=== PATIENT | male | born 1980 | race Caucasian/White ===

== ENCOUNTER 2018-06-05 21:53 | Emergency (ER) | payer MEDICAID ==
[~2018-06-05] VITALS: Ht 172.7 cm; Wt 72.6 kg
[~2018-06-05 21:53] MED LIST: AZIT250 PO; Bactroban22 GM TOP; CRUTCH USE; DEXGUASY PO; HYDACE5 PO; OXYACE5T PO; PRED20 PO; TOBDEXOPSU OP
== END 2018-06-05 23:23 | disposition home or self-care (01) ==
LOC: ER 21:53
DX: S93.401A Sprain of unspecified ligament of right ankle, initial encounter (principal); F17.210 Nicotine dependence, cigarettes, uncomplicated; X50.9XXA Other and unspecified overexertion or strenuous movements or postures, initial encounter
CPT/HCPCS: 73610; 99283-25

== ENCOUNTER 2021-09-01 16:56 | Emergency (ER) | payer OTHER ==
[~2021-09-01] VITALS: Ht 172.7 cm; Wt 76.2 kg
[~2021-09-01 16:56] MED LIST changes: +Doxycycline Hy100 MG PO
[2021-09-01] MEDS ORDERED: PERM5TC TOP (17:14)
== END 2021-09-01 17:25 | disposition home or self-care (01) ==
LOC: ER 16:56
DX: B86 Scabies (principal); F17.210 Nicotine dependence, cigarettes, uncomplicated
CPT/HCPCS: 99282; A9270

== ENCOUNTER 2021-09-03 20:21 | Emergency (ER) | payer OTHER ==
[~2021-09-03] VITALS: Ht 172.7 cm; Wt 76.2 kg
[~2021-09-03 20:21] MED LIST changes: +PERM5TC TOP
== END 2021-09-03 22:53 | disposition home or self-care (01) ==
LOC: ER 20:21
DX: B86 Scabies (principal); F17.210 Nicotine dependence, cigarettes, uncomplicated
CPT/HCPCS: 99282

== ENCOUNTER 2024-01-29 17:10 | Inpatient (IN) | payer OTHER ==
[~2024-01-29] VITALS: Ht 172.7 cm; Wt 77.1 kg
[~2024-01-29 17:10] MED LIST changes: +CYCL10 PO; +IBUP800 PO; +Norco 5-325 Ta1 EACH PO; +Voltaren100 GM TOP
[2024-01-29 18:18] LABS: BASOPHILS ABSOLUTE AUTO 0.07 K/mm3 (0.00-0.23); BASOPHILS PERCENT AUTO 0 % (0-2); EOSINOPHILS ABSOLUTE AUTO 0.27 K/mm3 (0.00-0.68); EOSINOPHILS PERCENT AUTO 1 % (0-6); Hematocrit 38.7 % (37.0-53.0); Hemoglobin 12.9 g/dL (13.5-17.5); IMMATURE GRAN ABSOLUTE AUTO 0.15 K/mm3 (0.00-0.10); IMMATURE GRAN PERCENT AUTO 1 % (0-1); LYMPHOCYTES ABSOLUTE AUTO 2.48 K/mm3 (0.84-5.20); LYMPHOCYTES PERCENT AUTO 13 % (21-46); MONOCYTES ABSOLUTE AUTO 1.25 K/mm3 (0.16-1.47); MONOCYTES PERCENT AUTO 7 % (4-13); Mean Corpuscular HGB 29.3 pg (26.0-34.0); Mean Corpuscular HGB Conc 33.3 g/dL (31.5-36.5); Mean Corpuscular Volume 88 fL (80-100); NEUTROPHILS ABSOLUTE AUTO 14.42 K/mm3 (1.96-9.15); NEUTROPHILS PERCENT AUTO 77 % (41-73); Platelet Count 390 K/mm3 (150-400); RDW Coefficient Variation 12.2 % (11.7-14.2); RDW Standard Deviation 39.7 fL (35.1-46.3); White Blood Cell Count 18.64 K/mm3 (4.00-11.30)
[2024-01-29 18:40] LABS: Bun/Creatinine Ratio 13.3 (12.0-20.0); Calcium, Blood 9.2 mg/dL (8.5-10.1); Creatinine, Blood 0.9 mg/dL (0.60-1.20); Potassium, Blood 4.3 mmol/L (3.5-5.5)
[2024-01-29 19:00] LABS: Influenza A, PCR NEGATIVE (NEGATIVE); Influenza B, PCR NEGATIVE (NEGATIVE); Resp Syncytial Virus, PCR NEGATIVE (NEGATIVE); SARS-Cov-2 (COVID-19) PCR, MMC NEGATIVE (NEGATIVE)
[2024-01-29] MEDS ORDERED: MetroNIDAZOLE 500MG/NS 100 ml 100 ML IV ONE (19:00)
[2024-01-29] MEDS ORDERED: Azithromycin 250 MG Tab PO ONE (19:00)
[2024-01-29] MEDS ORDERED: CefTRIAXone Sodium 1,000 MG in NS 100 ML IV ONE (19:00)
[2024-01-29] MEDS ORDERED: NS 1,000 ML IV SCH ×3 (19:10→20:55)
[2024-01-29] MEDS ORDERED: Benzonatate 100 MG Cap PO ONE (19:25)
[2024-01-29] MEDS ORDERED: Ondansetron HCl 2 MG / ML 2ML Vial IV PRN (20:55)
[2024-01-29] MEDS ORDERED: Acetaminophen 325 MG TABLET PO PRN (20:55)
[2024-01-29] MEDS ORDERED: Piperacillin/Tazobactam Sod 3.375 GM in NS 100 ML IV SCH (21:00)
[2024-01-29 22:50] VITALS: BP 128/82
--- NOTE | 2024-01-30 03:02 | NUR ---
SHIFT SUMMARY 43 YR M ADMITTED ON 01/29/24. FULL CODE. NO ACUTE CHANGES THIS SHIFT. PT STAYED THE NIGHT IN THE ROOM WITH HIM. PT STATED HE WAS TOLD IN THE ED THAT HE MAY HAVE LUNG CANCER AND HE AND HIS ARE UPSET AND NOT WANTING TO BE APART RIGHT NOW. PT IS A&O X 4 AND INDEPENDANT IN THE ROOM. HE DID HAVE A PACK OF CIAGARETTES AND A MEDICAL SUPERVISOR ON HIM, BUT SURRENDERED THEM TO THIS NURSE TO BE LOCKED IN PT DRAWER UNTIL TIME OF DISCHARGE. PT C/O HACKING COUGH AND GIVEN GUAIFENESEN W/CODEINE WITH SLIGHT RELEIF. NO C/O CHEST PAIN OR SOB. BED IN LOW POSITION AND CALL LIGHT IN REACH.
[2024-01-30 04:20] VITALS: BP 85/59
[2024-01-30 04:21] VITALS: BP 89/58
[2024-01-30 06:06] LABS: BASOPHILS ABSOLUTE AUTO 0.06 K/mm3 (0.00-0.23); BASOPHILS PERCENT AUTO 0 % (0-2); EOSINOPHILS PERCENT AUTO 2 % (0-6); Hematocrit 36.1 % (37.0-53.0); Hemoglobin 12.1 g/dL (13.5-17.5); IMMATURE GRAN ABSOLUTE AUTO 0.13 K/mm3 (0.00-0.10); IMMATURE GRAN PERCENT AUTO 1 % (0-1); LYMPHOCYTES ABSOLUTE AUTO 1.92 K/mm3 (0.84-5.20); LYMPHOCYTES PERCENT AUTO 12 % (21-46); MONOCYTES ABSOLUTE AUTO 1.26 K/mm3 (0.16-1.47); MONOCYTES PERCENT AUTO 8 % (4-13); Mean Corpuscular HGB 29.7 pg (26.0-34.0); Mean Corpuscular HGB Conc 33.5 g/dL (31.5-36.5); Mean Corpuscular Volume 89 fL (80-100); Mean Platelet Volume 9.2 fL (9.1-12.4); NEUTROPHILS ABSOLUTE AUTO 12.26 K/mm3 (1.96-9.15); NEUTROPHILS PERCENT AUTO 77 % (41-73); Platelet Count 314 K/mm3 (150-400); RDW Coefficient Variation 12.3 % (11.7-14.2); RDW Standard Deviation 40.4 fL (35.1-46.3); Red Blood Cell Count 4.07 M/mm3 (4.30-5.90); White Blood Cell Count 15.93 K/mm3 (4.00-11.30)
[2024-01-30 06:24] LABS: U Amphetamine Screen DETECTED; U Barbituate Screen Not Detected; U Benzodiazapine Screen Not Detected; U Buprenorphine Screen Not Detected; U Cannabinoids Screen Not Detected; U Cocaine Screen Not Detected; U Methadone Screen Not Detected; U Methamphetamine Screen DETECTED; U Opiates Screen DETECTED; U Oxycodone Screen Not Detected; U Phencyclidine Screen Not Detected
[2024-01-30 06:48] LABS: Bun/Creatinine Ratio 10.3 (12.0-20.0); Calcium, Blood 8.6 mg/dL (8.5-10.1); Creatinine, Blood 0.97 mg/dL (0.60-1.20); Potassium, Blood 4.4 mmol/L (3.5-5.5)
[2024-01-30 08:01] VITALS: BP 108/67
[2024-01-30] MEDS ORDERED: Benzonatate 100 MG Cap PO SCH (12:00)
[2024-01-30 13:00] VITALS: BP 137/70
[2024-01-30] MEDS ORDERED: GuaiFENesin 600 MG TabCR PO SCH (13:00)
[2024-01-30] MEDS ORDERED: Enoxaparin 40 MG/0.4 ML SYR SC SCH (13:00)
[2024-01-30] MEDS ORDERED: Ipratropium/Albuterol SulF 2.5-0.5MG/3 ML Amp INH SCH ×2 (16:50)
--- NOTE | 2024-01-30 18:22 | NUR ---
SHIFT SUMMARY 43 YEAR OLD MALE ADMITTED FOR PRESISENT COUGH, SUSPECTED NECROTIZING PNEUMONIA, 7 MM LEFT UPPER LOBE NODULE, SUSPECTED MALIGNANCY, TEMPATURE 98.8 F, BLOOD PRESSURE 137/70 PULSE 101, O2 SATS 100% GIVEN ZOYSAN TO TREAT INFECTION. CONTINUEOUS NORMAL SALINE 100 ML HOUR. C/O COUGH, CARDIAC TACHYCARDIC BOUNDING PULSES, LUNG SOUNDS COARSE CRACKLES, BOWEL SOUNDS PRESENT, NO BM, PT ABLE AMBULATE WITH NO ASSISTANCE. REGULAR DIET. NO EDEMA NOTED.
--- NOTE | 2024-01-30 18:44 | NUR ---
[facility] TRENDING DOWNWARD. VITAL SIGNS ARE STABALIZING.
--- NOTE | 2024-01-30 18:58 | NUR ---
SHIFT SUMMARY PT RESTING COMFORTABLE HR, BP, O2 SAT WNL AND PULSES ARE STRONG.BIOPSY TOMORROW ON LEFT LOBE. PATIENT STILL HAS COUGH GIVEN GUAIFENSIN WITH CODEINE WHICH SEEMS EFFECTIVE IN REDUCING THE COUGH.
[2024-01-30 20:47] VITALS: BP 120/69
[2024-01-30] MEDS ORDERED: Lactobacil 2-S.Thermo-Bifido 1 1 Cap PO SCH (21:00)
[2024-01-31 04:02] VITALS: BP 126/79
--- NOTE | 2024-01-31 04:49 | NUR ---
SHIFT SUMMARY 43 YR M ADMITTED ON 01/29/24. FULL CODE. NO ACUTE CHANGES THIS SHIFT. PT APPEARS TO HAVE RESTED COMFORTABLY THROUGHOUT THE NIGHT W/ NO C/O PAIN OR DISCOMFORT. PT IS STILL HAVING A HACKING COUGH AND WAS GIVEN GUIFENESEN W/ CODEINE TWICE THIS SHIFT. STAYED THE NIGHT IN THE ROOM AND THIS SEEMS TO BRING COMFORT TO PT. PLAN IS FOR BIOPSY OF LEFT LOBE TODAY.
[2024-01-31 05:34] LABS: BASOPHILS ABSOLUTE AUTO 0.06 K/mm3 (0.00-0.23); BASOPHILS PERCENT AUTO 0 % (0-2); EOSINOPHILS ABSOLUTE AUTO 0.56 K/mm3 (0.00-0.68); EOSINOPHILS PERCENT AUTO 4 % (0-6); Hematocrit 35.9 % (37.0-53.0); Hemoglobin 11.9 g/dL (13.5-17.5); IMMATURE GRAN PERCENT AUTO 2 % (0-1); LYMPHOCYTES ABSOLUTE AUTO 1.96 K/mm3 (0.84-5.20); LYMPHOCYTES PERCENT AUTO 15 % (21-46); MONOCYTES ABSOLUTE AUTO 1.21 K/mm3 (0.16-1.47); MONOCYTES PERCENT AUTO 9 % (4-13); Mean Corpuscular HGB 29.5 pg (26.0-34.0); Mean Corpuscular HGB Conc 33.1 g/dL (31.5-36.5); Mean Corpuscular Volume 89 fL (80-100); Mean Platelet Volume 9.6 fL (9.1-12.4); NEUTROPHILS ABSOLUTE AUTO 9.41 K/mm3 (1.96-9.15); NEUTROPHILS PERCENT AUTO 70 % (41-73); Platelet Count 310 K/mm3 (150-400); RDW Coefficient Variation 12.1 % (11.7-14.2); RDW Standard Deviation 39.6 fL (35.1-46.3); Red Blood Cell Count 4.04 M/mm3 (4.30-5.90)
[2024-01-31 06:07] LABS: Calcium, Blood 8.9 mg/dL (8.5-10.1); Creatinine, Blood 0.88 mg/dL (0.60-1.20); Potassium, Blood 4.1 mmol/L (3.5-5.5)
[2024-01-31 07:29] VITALS: BP 123/80
[2024-01-31] MEDS ORDERED: Azithromycin 500 MG in NS 250 ML IV SCH (09:00)
[2024-01-31] MEDS ORDERED: Nicotine 14 MG PATCH TOP SCH (09:00)
[2024-01-31 20:54] VITALS: BP 133/74
[2024-02-01 03:48] VITALS: BP 124/84
--- NOTE | 2024-02-01 04:36 | NUR ---
SHIFT SUMMARY PT SLEPT MUCH OF THE NIGHT. GIVEN COUGH SYRUP Q 4 HRS. PT WILL MOST LIKELY BE DISCHARGED TODAY. WILL CONTINUE TO MONITOR.
[2024-02-01 06:09] LABS: Hematocrit 36.8 % (37.0-53.0); Hemoglobin 11.8 g/dL (13.5-17.5); Mean Corpuscular HGB 28.6 pg (26.0-34.0); Mean Corpuscular HGB Conc 32.1 g/dL (31.5-36.5); Mean Corpuscular Volume 89 fL (80-100); Mean Platelet Volume 9.3 fL (9.1-12.4); Platelet Count 345 K/mm3 (150-400); RDW Coefficient Variation 12.2 % (11.7-14.2); RDW Standard Deviation 40.2 fL (35.1-46.3); Red Blood Cell Count 4.12 M/mm3 (4.30-5.90); White Blood Cell Count 13.71 K/mm3 (4.00-11.30)
[2024-02-01 07:27] VITALS: BP 138/77
[2024-02-01] MEDS ORDERED: ACET325 PO (12:58)
[2024-02-01] MEDS ORDERED: Tessalon200 MG PO (13:00)
[2024-02-01] MEDS ORDERED: CODEINE-GUAIFE120 M1 PO (13:02)
[2024-02-01] MEDS ORDERED: Mucinex600 MG PO (13:05)
[2024-02-01] MEDS ORDERED: VISBIOME 112.51 EACH PO (13:06)
[2024-02-01] MEDS ORDERED: AMOCLA875 PO (13:07)
[2024-02-01 15:27] VITALS: BP 147/83
--- NOTE | 2024-02-01 17:51 | NUR ---
DISCHARGE SUMMARY PT DISCHARGED AT 1745. DISCHARGE EDUCATION GIVEN TO PT PRIOR, ALONG WITH HARD COPY PRESCRIPTION TO TAKE TO PHARMACY. FAXED COPIES OF OTHER MEDICATIONS TO [facility] PER PT REQUEST. PT RECEIVED LAST DOSE OF ANTIBIOTICS. IV TAKEN OUT AND SKIN ASSESSED.
== END 2024-02-01 17:43 | disposition home or self-care (01) | DRG 871 ==
LOC: ER 17:10 → MEDS 20:52
PROVIDERS: Internal Medicine; Nurse Practitioner Acute Care; Student in an Organized Health Care Education/Training Program; ADMIT Internal Medicine
DX: A41.9 Sepsis, unspecified organism (principal); J85.0 Gangrene and necrosis of lung; C34.90 Malignant neoplasm of unspecified part of unspecified bronchus or lung; F15.10 Other stimulant abuse, uncomplicated; F17.210 Nicotine dependence, cigarettes, uncomplicated; Z53.9 Procedure and treatment not carried out, unspecified reason
CPT/HCPCS: 0241U; 36415; 71046; 71260; 80048; 83605; 84145; 85025; 85027; 87040; 87070; 87205; 94640; 94664; 94760; 96361; 96374-59; 96375-59; 99285-25; A9270; J0456; J0696; J1650; J2543; J7030; J7050; Q9967

== ENCOUNTER 2024-10-19 18:26 | Emergency (ER) | payer OTHER ==
[~2024-10-19] VITALS: Ht 172.7 cm; Wt 79.4 kg
[~2024-10-19 18:26] MED LIST changes: +ACET325 PO; +AMOCLA875 PO; +CEPH500 PO; +CODEINE-GUAIFE120 M1 PO; +Mucinex600 MG PO; +Tessalon200 MG PO; +VISBIOME 112.51 EACH PO
[2024-10-19 18:53] VITALS: BP 160/102
== END 2024-10-19 19:50 | disposition home or self-care (01) ==
LOC: ER 18:26
DX: R05.8 Other specified cough (principal); B97.89 Other viral agents as the cause of diseases classified elsewhere; F17.210 Nicotine dependence, cigarettes, uncomplicated; Z79.899 Other long term (current) drug therapy
CPT/HCPCS: 71045; 99283-25